=== PATIENT | female | born 1980 | race Caucasian/White ===

== ENCOUNTER 2018-01-30 18:10 | Emergency (ER) | payer MEDICAID | END 2018-01-30 20:39 | disposition home or self-care (01) | LOC: D.ER 18:10 | DX: S39.012A Strain of muscle, fascia and tendon of lower back, initial encounter (principal); X58.XXXA Exposure to other specified factors, initial encounter; Y93.89 Activity, other specified; Y92.019 Unspecified place in single-family (private) house as the place of occurrence of the external cause; M54.32 Sciatica, left side; M54.31 Sciatica, right side; F17.200 Nicotine dependence, unspecified, uncomplicated ==

== ENCOUNTER 2018-04-21 05:30 | Day surgery (SDC) | payer MEDICAID ==
[2018-04-19 15:31] LABS: BASOPHILS 0.5 % (0-2); EOSINOPHILS 3.8 % (0-7); HEMATOCRIT 45.8 % (36.0-48.0); HEMOGLOBIN 15.3 g/dL (12-16); IMMATURE GRANULOCYTES 0.3 % (0-5); LYMPHOCYTES 26.2 % (15-50); MCH 28.4 pg (26.0-34.0); MCHC 33.4 g/dL (31.0-37.0); MEAN PLATELET VOLUME 10.6 fL (7.4-10.4); MONOCYTES 8.8 % (2-11); NEUTROPHILS 60.4 % (40-80); PLATELET COUNT 218 10x3/uL (130-400); RBC 5.39 10x6/uL (4.00-5.40); RDW 14.1 % (11.5-14.5); WBC 7.9 10x3/uL (4.8-10.8)
[~2018-04-21] VITALS: Ht 165.1 cm; Wt 111.1 kg
--- NOTE | ~2018-04-21 | OP ---
PATIENT NAME: LUIS ALFREDO RICHTER MEDICAL RECORD: [id number] :84 LOCATION:D[facility] ADMISSION DATE: SURGEON: STEVEN ALMONTE MD DATE OF OPERATION: 04/21/2018 PREOPERATIVE DIAGNOSIS: The patient desires permanent sterility. POSTOPERATIVE DIAGNOSIS: The patient desires permanent sterility. PROCEDURE: Laparoscopic tubal ligation via bipolar cautery. SURGEON: Steven Almonte MD ANESTHESIA: General by LMA. INTRAVENOUS FLUIDS: Per anesthesia records. FINDINGS: 1. Severely retroverted uterus. 2. Grossly normal-appearing fallopian tubes and ovaries. PROCEDURE: Laparoscopic tubal ligation via bipolar cautery. SPECIMENS: None. FINDINGS: 1. Severely retroverted uterus causing difficulty with access to the fallopian tubes. 2. Grossly normal-appearing ovaries. 3. Grossly normal-appearing uterus otherwise. COMPLICATIONS: None apparent. DESCRIPTION OF PROCEDURE: The patient was taken to the operating room, where general anesthesia was achieved without any difficulty. The patient was then prepped and draped in normal sterile fashion in the dorsal lithotomy position in the [facility]. Following prep and drape, the bladder was drained of approximately 50 cc of clear yellow urine. A sponge stick was placed into the vagina for uterine elevation. At this point, attention was turned to the abdomen. A 5-mm skin incision was made in the inferior aspect of the umbilicus. A 5-mm bladeless trocar was used to enter the intraperitoneal space under direct visualization of the laparoscope. Following visual confirmation of the intraperitoneal space, the introducer was removed and the camera was replaced through the trocar sleeve and found to be intraperitoneal. The patient was then insufflated and opening pressure was found to be less than 10 mmHg. Following insufflation, a second 5-mm skin incision was made approximately 5 cm above the pubic symphysis in the midline. A second 5-mm bladeless trocar was used to enter the intraperitoneal space under direct visualization of the laparoscope. Upon survey of the abdomen, severe retroversion of the uterus was found making salpingectomy very difficult. It was decided at that time to proceed with bipolar cautery as per conversation with the patient. The tube was grasped at its fimbriated ends bilaterally and delivered upward while a sponge stick was used to cause partial anteversion of the uterus. The tube was then cauterized in its mid section approximately 5 cm bilaterally without damage to the surrounding tissue. Good hemostasis was noted from both surgical sites. The OPERATIVE REPORT [id number] LUIS ALFREDO RICHTER scope was then removed, and the patient was desufflated. The skin incisions were repaired with 3-0 Vicryl in an interrupted fashion. The sponge stick was removed from the vagina. The patient tolerated the procedure well, transferred to postanesthesia recovery stable and without incident. TRANSINT:[id number] Voice Confirmation ID: [id number] DOCUMENT ID: [id number] STEVEN ALMONTE MD CC: [id number] DICTATION DATE: 05/06/18 0655 IT BUSINESS PROCESS ARCHITECT: 05/06/18 1030 [facility] 04/21/18 [id number] [place] [address]
[~2018-04-21 05:30] MED LIST: BC POWDER PO; BUPROPION HCL100 MG PO; BUSPIRONE HCL30 MG PO; CLARITIN 10 MG10 MG PO; EC-NAPROSYN500 MG PO; MOBIC7.5 MG PO; VALIUM 2 MG TAB2 MG PO
[2018-04-21] MEDS ORDERED: NEURONTIN 300300 MG (05:52)
[2018-04-21 06:15] VITALS: BP 135/83; BMI 40.8
[2018-04-21 06:33] LABS: HCG URINE NEGATIVE (NEGATIVE)
[2018-04-21 06:54] VITALS: Ht 165.1 cm; Wt 111.1 kg
--- NOTE | 2018-04-21 12:45 | NUR ---
REC'D FROM [facility]. FAMILY AT BEDSIDE. FL TRAY BROUGHT TO PT. DRESSING CDI TO SURGICAL INCISIONS.
--- NOTE | 2018-04-21 13:15 | NUR ---
FAMILY AT BEDSIDE. EATING FL TRAY. NO C/O VOICED.
== END 2018-04-21 14:05 | disposition home or self-care (01) ==
LOC: D.OPS 05:30 → D.PAN 07:30 → D.OPS 07:30
PROVIDERS: ATTEND Obstetrics & Gynecology
DX: Z30.2 Encounter for sterilization (principal)